=== PATIENT | female | born 1980 | race Caucasian/White ===

== ENCOUNTER 2018-08-09 12:11 | Emergency (ER) | payer BC ==
--- OUTSIDE RECORDS SUMMARY | 2018-08-09 13:57 | XMS REPORT ---
:1980 External Reference #:[id number] Author Organization [facility] Address [address] [place] [address] Phone [phone] Care Team Providers Name Role Phone Sami Conn MD Care Team Information Privacy Attorney Unavailable Sami Conn MD Primary Care Physician Unavailable Payers Type Date Identification Payment Provider Subscriber Numbers Health Maintenance Effective: Policy Number: Essential Plan Neli West (O) 06/04/2017 [id number] [employer] Expires: 08/03/2017 PayID: [id number] [address] [address] [place] [address] Medigap Part B Effective: Policy Number: [place] Neli Pa 08/04/2017 [id number] Robert PayID: [id number] [address] [address] [place] [address] Problems Date Description Provider Status Onset: 04/26/2011 Overweight Hanh Baker M.D. Active Onset: 04/26/2011 Allergic condition Hanh Baker M.D. Active Onset: 04/26/2011 Disorder of menstruation Hanh Baker M.D. Active Onset: 06/25/2011 Headache Sami Conn M.D. Active Onset: 01/08/2012 Dysphagia Sami Conn M.D. Active Onset: 01/08/2012 Excessive thirst Sami Conn M.D. Active Onset: 06/30/2012 Depressive disorder Sami Conn M.D. Active Onset: 07/10/2012 Acute upper respiratory infection Sami Conn M.D. Active Onset: 08/18/2012 Myalgia & Myositis Unspec Sami Conn M.D. Active Onset: 11/05/2013 Backache Sami Conn M.D. Active Onset: 11/05/2013 Arthralgia of the pelvic region and Sami Conn M.D. Active thigh Onset: 06/30/2017 Malaise and fatigue Sami Conn M.D. Active Onset: 06/06/2017 Polycystic ovaries Sami Conn M.D. Active Onset: 04/24/2016 Acne Sami Conn M.D. Active Family History Date Family Member(s) Problem(s) Comments General No FHx lung, colon Ca.No fHx DM. Father 58, healthy. Mother 55, HTN. Number of Children 2 boys, 1 daughter. Oldest son with bipolar disorder. No junk food in the house. Daughter, healthy. Youngest son - healthy. Number of Siblings 2 brothers, healthy. Maternal Grandfather 70's, [place]. Paternal Aunt Breast CA dx'd 40's. 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 Cigarette Use Never Smoked Cigarettes ETOH Use Denies alcohol use Daily Caffeine Rare Exercise Type/Frequency Current taking care of her . But otherwise no real exercise. Seat Belt/Car Seat Always uses a seat belt Contraceptive Methods will be getting an IUD.- paraguard. Allergies, Adverse Reactions, Alerts Date Description Reaction Status Severity Comments 01/20/2010 Percocet active 07/20/2010 Sulfa active 08/28/2012 Cipro active 03/29/2014 Anila active blinding QUILES'a-pzncvvcvz-chsp swings 03/29/2014 Glucophage inactive severe gi upset Medications Medication Date Status Form Strength Qnty SIG Indications Ordering Provider Augmentin 07/30 Active Tablets 875-125mg 20tabs 1 by Amaya mouth Laura, twice a VALVER day x 10 days No Active 07/30 Hx Unknown Medications /2017 - 07/30 No Active 03/02 Hx Unknown Medications /2017 - 03/02 Benzphetamine 03/02 Hx Tablets 50mg 30tabs Use 1 Sami Burr HCL Pill Ember Conn - Gina Echevarria 03/02 Cimetidine 03/02 Hx Tablets 400mg 30tabs Use 1 Sami Burr Pill A Breiman, - Day M.D. 07/29 Benzphetamine 03/02 Hx Tablets 50mg 30tabs Use 1 Sami Burr Pill A Breiman, - Day M.D. 07/29 Amoxicillin 10/27 Hx Capsules 500mg 20caps twice a Sami Burr day x 10 Breiman, - days M.D. 11/11 Macrobid 09/08 Hx Capsules 100mg 10caps use Sami Burr twice a Breiman, - day M.D. 11/11 Wellbutrin 07/17 Hx Tablets 75mg 60tabs 1 by Sami Burr mouth Fabien, - twice a M.D. Macrobid 06/25 Hx Capsules 100mg 10caps use Sami Burr twice a Breiman, - day M.D. 06/30 Metformin HCL 06/06 Hx Tablets 500mg 60tabs 1 by Sami Burr mouth Fabien, - twice a M.D. Imitrex 02/24 Hx Tablets 50mg 9tabs take 1 Sami Burr tablet Breiman, - by mouth M.D. 03/02 at onset of headache may repeat once in 2 hours Augmentin 02/10 Hx Tablets 500-125mg 20tabs 1 by Sami Burr mouth Lorraineimacarlos, - twice a M.D. Macrobid 09/10 Hx Capsules 100mg 10caps use Sami Burr twice a Breimacarlos, - day M.D. 10/23 Meloxicam 06/12 Hx Tablets 15mg 30tabs 1 by Sami Burr mouth Fabien, - every M.D. Diflucan 04/18 Hx Tablets 150mg 2tabs 1 po times 1 Ray, - day, december M.D. 06/12 repeat in 5-7d Metronidazole 04/18 Hx Tablets 500mg 21tabs 1 tab by mouth Ray, - three M.D. 06/12 times a day x 1 week Zithromax Z-Jermain 04/15 Hx Tablets 250mg 1Pack as Sami Burr directed Breiman, - M.D. 04/24 Minocycline HCL 03/28 Hx Capsules 75mg 60caps one L70.0 tablet Venu [facility] - by mouth 06/12 twice daily for treatmen t of acne Spironolactone 02/21 Hx Tablets 100mg 30tabs one L70.0 Nedra tablet Venu [facility] - by mouth 06/12 Benzoyl 01/17 Hx Gel 5-3% 23.300gm apply L70.0 Nedra Peroxide-Erythro small Venu [facility] mycin - amount 02/21 to affected area 2 x a day Augmentin 10/31 Hx Tablets 500-125mg 20tabs 1 by Sami Burr /2015 mouth Fabien, - twice a M.D. Phendimetrazine 10/29 Hx Tablets 35mg 180tabs 2 E66.3 Sami Burr Tar tablets Fabien, - by mouth M.D. 03/02 times a day Azithromycin 10/12 Hx Tablets 250mg 6tabs 2 po Sami Burr /2015 today Fabien, - and 1 po M.D. 10/29 x 4 days Nitrofurantoin 09/05 Hx Capsules 100mg 14caps 1 bid x1 Jenny Monohyd week Clifford, - M.D. 10/29 Augmentin 09/05 Hx Tablets 875-125mg 14tabs 1 tab by mouth Clifford, - twice a M.D. 10/29 day 7days Note 08/30 Hx neli Burr /2015 was Fabien, - seen M.D. 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 10/29 day Adderall 04/04 Hx Tablets 20 30tabs use Sami Burr /2014 daily Fabien, - in pm M.D. 07/13 dt Diflucan 11/29 Hx Tablets 150mg 2tabs 1 po Sami Burr /2014 times 1 Fabien, - day, december M.D. 08/28 in 5-7d Nitrofurantoin 11/29 Hx Capsules 100mg 20caps 1 bid Sami Aminah Monohyd Macro Jade Conn M.D. 08/28 No Active 10/19 Hx Unknown Medications /2014 - 11/29 Azithromycin 10/08 Hx Tablets 250mg 6tabs 2 po Sandro T. /2014 today Midura, - and 1 po M.D. 10/19 x 4 days Tramadol 08/24 Hx Tablets 37.5-325m 1 or 2 786.59 Amaya Hydrochloride/Ac g tablets Laura, etaminophen - every 6 VALVER 08/24 hours needed for pain relief up to a maximum of 8 tablets per day No Active 08/24 Hx Unknown Medications /2014 - 08/24 Phentermine HCL 08/24 Hx Capsules 15mg 30caps use 1 Sami Burr pill A Fabien, - day M.D. 10/19 Topamax 08/24 Hx Tablets 25mg 30tabs take one Sami Burr tablet Fabien, - by mouth M.D. 10/19 once A day Nitrofurantoin 04/12 Hx Capsules 100mg 20caps 1 po bid Sandro T. Monohydr /2013 Praneeth - M.D. 08/24 Alprazolam 03/29 Hx Tablets 0.25mg 30tabs 1 by 300.00 Amaya mouth Laura, - twice a VALVER 08/24 day needed anxiety Tramadol HCL 03/29 Hx Tablets 50mg 25tabs 1 q6h 786.59 Amaya /2014 prn pain Laura, - (known VALVER 08/24 hives w percocet ) Sertraline HCL 03/29 Hx Tablets 100mg 90tabs 1/2 po 311 Amaya /2014 qd Laura, - VALVER 08/24 Azithromycin 03/10 Hx Tablets 250mg 6tabs 2 po Sandro T. /2013 today Midura, - and 1 po M.D. 03/29 x 4 days Metformin HCL ER 03/03 Hx Tablets ER 500mg 90tabs 1 po qd 256.4 Graciela 24HR Jade Calderón 03/03 Anila 28 03/03 Hx Tablets 3-0.03mg 84tabs 1 po qd 256.4 Jade Calderón 03/29 Glucophage XR 03/03 Hx Tablets ER 500mg 90tabs 1 po qd 24HR Jade Calderón 03/29 Macrodantin 01/06 Hx Capsules 100mg 10caps 1 po bid x 5 days Alejo, - VALVER 02/09 Plegine 11/26 Hx 35 180units take 2 Sami Burr tid Jade Conn M.D. 08/24 Diflucan 11/13 Hx Tablets 150mg 2tabs 1 po times 1 Alejo, - day, 02/09 in 5-7d Betamethasone 10/12 Hx Cream 0.1% 30gm apply 782.1 Graciela bid Jade Calderón 10/19 Phentermine HCL 08/09 Hx Tablets 37.5mg 30tabs use po q.d Jade Calderón 11/26 Flagyl 07/27 Hx Tablets 500mg 14tabs 1 tab by Sami Burr /2012 mouth Fabien, - twice a M.D. 08/28 day x days Adderall 07/07 Hx Tablets 15mg 30tabs use Sami Burr /2012 daily Fabien, - in pm M.D. 04/04 Amoxicillin 06/30 Hx Capsules 500mg 16caps bid x 8 Sami Burr days Jade Conn M.D. 07/07 Macrodantin 06/14 Hx Capsules 100mg 10caps 1 po bid Sami Burr x 5 days Jade Conn M.D. 06/30 Adderall 06/10 Hx Tablets 10mg 30tabs 1 po Sami Burr qam Jade Conn M.D. 07/07 dt No Active 05/28 Hx Unknown Medications /2012 - 05/28 Plegine 05/28 Hx 35 180units use 2 Sami Burr tid Jade Conn M.D. 06/10 Metformin HCL 04/06 Hx Tablets 500mg 60tabs 1 po qd Amaya Laura, - VALVER 05/28 Naproxen 03/22 Hx Tablets 500mg 30tabs 1 po bid 728.71 Tiburcio Velasquez, /2012 Wale - 05/28 Diflucan 02/18 Hx Tablets 150mg 2tabs 1 po Nedra /2012 today Brown, [facility] - and december 08 repeat in 7 days x 1 prn Alprazolam 02/13 Hx Tablets 0.25mg 30tabs 1 po bid Rad A. /2012 prn Mona - anxiety Wale 05/28 Macrodantin 01/25 Hx Capsules 100mg 10caps 1 po bid x5 days Alejo, - VALVER 02/13 Amoxicillin/Clav 12/18 Hx Tablets 875-125mg 10tabs 1 po bid 461.9 Sami Burr john with Rhoda Conn - mary leslie M.D. 02/13 5d Fexofenadine HCL 12/01 Hx Tablets 180mg 30tabs 1 po qd 995.3 Graciela Jade Calderón-C 12/23 Hydrocortisone/A 12/01 Hx Solution 1-2% 10ml 1-2 gtts 995.3 Graciela cetic Acid OU tid Kaitlynn, - prn Afnp-C 12/11 Work Excuse 10/22 Hx excuse 382.4 from Laura, - work due VALVER 11/25 to infectio us illness until 10/23/12, 10/24/12 Amoxicillin/Pota 10/22 Hx Tablets 875-125mg 20tabs take one 382.4 Amaya tab po Laura, Clavulanate - bid x 10 VALVER Amoxicillin/Clav 08/28 Hx Tablets 875-125mg 20tabs 1 po bid 461.9 Grace john with Alejo Potassium - food x VALVER 09/16 Naproxen 08/18 Hx Tablets 375mg 30tabs take 1 Sami Burr tablet Fabien - twice a M.D. 08/28 day meals Note 08/[address] Sami Burr tempora Jade Conn in M.DPetar 10/21 parking lot due to pain dt Ciprofloxacin 08/06 Hx Tablets 250mg 6tabs take 1 Amaya HCL tablet Laura, - po bid x VALVER 08/18 3 Tamiflu 07/10 Hx Capsules 75mg 10caps 1 bid Sami Burr X 5 Days Jade Conn M.D. 08/05 Celexa 06/30 Hx Tablets 10mg 30tabs 1 po qd Sami Burr Jade Conn M.D. 08/05 Note Due To 04/22 Hx Please [facility] Issues excuse Alejo, - Crystal VALVER 05/27 classes on and \\ due to illness. Amoxicillin/Clav 04/20 Hx Tablets 875-125mg 20tabs 1 po bid 461.9 Grace anat with Alejo Potassium - food x VALVER 05/27 Diflucan 11/28 Hx Tablets 150mg 4tabs 1 po Hanh LPetar times 1 Samuel - ginaDecember.DPetar 12/17 repeat in 5-7d Plegine 11/19 Hx 35 180units use 2 Sami Burr tid Jade Conn M.D. 05/28 Augmentin 10/31 Hx Tablets 875-125mg 28tabs 1 po bid Hanh LPetar Jade Baker M.D. 11/19 take with yogurt/a lign Cephalexin 10/27 Hx Capsules 250mg 30caps 1 po tid Hanh LPetar x 10 d. Samuel, Jade with M.DPetar 11/19 yogurt or kefir. Bactroban 10/24 Hx Ointment 2% 30mg apply tid to Alejo, - affected VALVER 11/19 area 3-5d Flector 10/06 Hx Patches 1.3% 4units 1 patch Hanh L. /2011 q 12 Samuel - hours M.DPetar 11/19 Acetaminophen/Co 10/06 Hx Tablets 300-30mg 20tabs 1-2 po Hanh Elizabeth deine #3 at hs. Jade Baker M.D. 11/19 Cytomel 07/16 Hx Tablets 5mcg 60tabs 1 po bid Hanh Johnson Jade Baker M.D. 11/19 Nortriptyline 07/05 Hx Capsules 25 30caps take 1 Sami Burr po qhs Jade Conn M.DPetar 09/03 Vimovo 05/[address] 500-20mg samples 1 po bid 848.8 Grace Alejo - VALVER 06/25 Amrix 05/13 Hx Caps ER 15mg samples 1 po qhs 848.8 Grace 24HR Alejo - VALVER 06/25 Augmentin 03/30 Hx Tablets 875-125mg 28tabs 1 po bid Amaya von - Broderick, 04/26 M.D. take with yogurt Prednisone 03/30 Hx Tablets 20mg 5tabs 1 tabs po qd x lisa - 5 Broderick, 04/26 M.D. Penvk 03/27 Hx 500 20units use bid Petar x 10 Fabien - days M.D. 03/30 Vitamin D 12/04 Hx Capsules [id number] 18caps 1 po Sami Burr weekly x Jade Conn 8. M.DPetar 12/23 1 po monthly thereaft er. Physical Therapy 11/23 Hx Evaluate ayo knee 719.46 Hanh LPetar And Treat pain - Jade Baker exercise M.DPetar 03/27 evaluate left hip pain Multivitamins 11/23 Hx Tablets 100tabs 1 po qd 719.45 Hanh LPetar Jade Baker M.D. 03/27 Vitamin C 11/23 Hx Tablets 500mg 100tabs 2 po qd 719.45 Hanh LPetar Jade Baker M.D. 03/27 B Complex Maxi 11/23 Hx Capsules 90caps 1 po qd 719.45 Hanh Johnson Jade Baker M.D. 03/27 Depo-Provera 07/20 Hx Suspension 150mg/ml q 3 Grace months Alejo, - VALVER 11/23 Zithromax 07/20 Hx Tablets 250mg 6Tabs 2 po qd 786.2 today , Alejo, - then 1 VALVER 11/23 po qd times 4 Proair HFA 07/20 Hx Aerosol 108(90Bas 1Mdi 2 puffs 786.2 e) mcg/ac bid-qid Alejo, - prn VALVER 11/23 cough, sob Ondansetron HCL 03/23 Hx Tablets 8mg 30tabs 1 po tid Amaya as von - needed Broderick, 07/20 for hypereme sis gravidar um PT Wants Disolova ble Tabs Tylenol With 02/24 Hx Tablets 300-30mg 30tabs 1 po q 6 Amaya Codeine #3 hours von - prn Broderick, 07/20 headache Zofran 01/24 Hx Tablets 8mg 25tabs 1 po tid as von - needed Broderick, 03/23 for hypereme sis gravidar um Zantac Hx Tablets 150mg 30tabs 1 po qd Unknown /0000 - 07/20 Provera Hx Tablets 2.5mg 7tabs take Unknown /0000 last - week ok 05/13 month Provera 00 Hx Tablets 10mg 1 po qd Unknown /0000 then - stop 06/25 Flagyl Hx Tablets 500mg prn Unknown /0000 - 04/24 Fluconazole Hx Tablets 150mg 30tabs 1 po qd Amaya /0000 prn Laura, - VALVER 03/02 Medications Administered in Office Medication Date Status Form Strength Qnty SIG Indications Ordering Provider TB Intradermal Administered Injection Sami Pizarro 016 Wale Conn TB Intradermal Administered Injection Sami Pizarro 015 Wale Conn TB Intradermal Administered Injection Sami Pizarro 014 Wale Conn TB Intradermal Administered Injection Sami Pizarro 013 Wale Conn TB Intradermal Administered Injection Sami Pizarro 012 Wale Conn TB Intradermal Administered Injection Hanh Pizarro 011 Wale Baker Immunizations CPT Code Status Date Vaccine Lot # [id number] Given 04/27/2015 Influenza Vac, Quadrivalent, Slit Virus, Im [id number] 08149 Given 04/26/2014 DO Not Use Split Influenza Virus Vaccine [id number] 91071 Given 03/30/2014 Varicella (Chicken Pox) Immunization [id number] 33185 Given 01/05/2014 Meningococcal Conjugate Vaccine,Serogroups For [id number] Intramuscular Use 88827 Given 01/05/2014 Varicella (Chicken Pox) Immunization [id number] 00223 Given 05/12/2013 DO Not Use Split Influenza Virus Vaccine [id number] 52122 Given 05/04/2012 DO Not Use Split Influenza Virus Vaccine [id number] 37519 Given 07/19/2011 Hepatitis B Immunization, adult dosage, for [id number] intramuscular use 69096 Given 07/19/2011 MMR Virus Immunization [id number] 76917 Given 04/23/2011 DO Not Use Split Influenza Virus Vaccine [id number] 17614 Given 03/06/2011 Hepatitis B Immunization, adult dosage, for [id number] intramuscular use 89424 Given 01/22/2011 Hepatitis B Immunization, adult dosage, for [id number] intramuscular use 86783 Given 09/03/2010 Tdap Tetanus, W Pertussis [id number] 41223 Given 04/20/2010 DO Not Use Split Influenza Virus Vaccine [id number] 93961 Given 09/19/1997 Tetanus And Diptheria Adult Preservative Free >7Yrs 82359 Given 03/08/1988 (IPV) Inactive Poliovirus Vaccine 00428 Given 03/08/1988 DTP Immunization 33672 Given 05/04/1987 (IPV) Inactive Poliovirus Vaccine 05172 Given 02/02/1984 (IPV) Inactive Poliovirus Vaccine 23060 Given 02/02/1984 DTP Immunization 83654 Given 12/26/1983 MMR Virus Immunization 63417 Given 03/04/1983 DTP Immunization 28666 Given 01/02/1983 (IPV) Inactive Poliovirus Vaccine 46559 Given 01/02/1983 DTP Immunization 48424 Given 1982 (IPV) Inactive Poliovirus Vaccine 63784 Given 1982 DTP Immunization Vital Signs Date Vital Result Comment 07/30/2018 BP Systolic 112 mmHg BP Diastolic 82 mmHg Heart Rate 90 /min Body Temperature 97.7 F Height 64 inches 5'4" 03/02/2018 BP Systolic 114 mmHg BP Diastolic 72 mmHg Heart Rate 68 /min Body Temperature 98.1 F Respiratory Rate 16 /min Height 64 inches 5'4" Weight 210.12 lb BMI (Body Mass Index) 36.1 kg/m2 11/11/2017 BP Systolic 108 mmHg BP Diastolic 70 mmHg Heart Rate 76 /min Body Temperature 98.4 F Respiratory Rate 18 /min Weight 214.00 lb 06/30/2017 BP Systolic 112 mmHg BP Diastolic 72 mmHg Heart Rate 76 /min Body Temperature 98.1 F Respiratory Rate 16 /min Height 64 inches 5'4" Weight 203.38 lb BMI (Body Mass Index) 34.9 kg/m2 06/06/2017 BP Systolic 116 mmHg BP Diastolic 70 mmHg Heart Rate 68 /min Body Temperature 98.6 F Height 64 inches 5'4" Weight 206.00 lb BMI (Body Mass Index) 35.4 kg/m2 02/05/2017 BP Systolic 118 mmHg BP Diastolic 70 mmHg Heart Rate 64 /min Body Temperature 98.4 F Respiratory Rate 16 /min Height 64 inches 5'4" Weight 204.38 lb BMI (Body Mass Index) 35.1 kg/m2 10/23/2016 BP Systolic 124 mmHg BP Diastolic 68 mmHg Heart Rate 72 /min Body Temperature 99.3 F Respiratory Rate 16 /min Height 64 inches 5'4" Weight 192.00 lb BMI (Body Mass Index) 33.0 kg/m2 06/12/2016 BP Systolic 126 mmHg BP Diastolic 70 mmHg Heart Rate 72 /min Body Temperature 98.2 F Respiratory Rate 16 /min Height 64 inches 5'4" Weight 186.38 lb BMI (Body Mass Index) 32.0 kg/m2 04/24/2016 BP Systolic 102 mmHg BP Diastolic 62 mmHg Heart Rate 76 /min Body Temperature 97.2 F Height 64 inches 5'4" Weight 185.00 lb BMI (Body Mass Index) 31.8 kg/m2 03/28/2016 BP Systolic 110 mmHg BP Diastolic 60 mmHg Heart Rate 76 /min Body Temperature 97.9 F Respiratory Rate 16 /min Height 64 inches 5'4" Weight 179.00 lb BMI (Body Mass Index) 30.7 kg/m2 02/22/2016 BP Systolic 122 mmHg BP Diastolic 82 mmHg Heart Rate 68 /min Body Temperature 98.9 F Height 64 inches 5'4" Weight 186.00 lb BMI (Body Mass Index) 31.9 kg/m2 01/18/2016 BP Systolic 124 mmHg BP Diastolic 84 mmHg Heart Rate 72 /min Body Temperature 98.8 F Respiratory Rate 16 /min Height 64 inches 5'4" Weight 188.00 lb BMI (Body Mass Index) 32.3 kg/m2 10/30/2015 BP Systolic 102 mmHg BP Diastolic 80 mmHg Heart Rate 74 /min Body Temperature 98.4 F Height 64 inches 5'4" Weight 186.00 lb BMI (Body Mass Index) 31.9 kg/m2 08/28/2015 BP Systolic 122 mmHg BP Diastolic 74 mmHg Heart Rate 70 /min Body Temperature 97.3 F Respiratory Rate 16 /min Height 64 inches 5'4" Weight 183.50 lb BMI (Body Mass Index) 31.5 kg/m2 11/08/2014 BP Systolic 110 mmHg BP Diastolic 60 mmHg Heart Rate 76 /min Body Temperature 98.8 F Respiratory Rate 16 /min Height 64 inches 5'4" 10/19/2014 BP Systolic 124 mmHg BP Diastolic 80 mmHg Heart Rate 68 /min Body Temperature 98.1 F Respiratory Rate 18 /min Height 64 inches 5'4" Weight 204.00 lb BMI (Body Mass Index) 35.0 kg/m2 Right Visual Acuity Distance 20/20 Left Visual Acuity Distance 20/20 09/09/2014 BP Systolic 123 mmHg BP Diastolic 82 mmHg Heart Rate 85 /min Body Temperature 99.1 F Respiratory Rate 16 /min Height 64 inches 5'4" 08/24/2014 BP Systolic 122 mmHg BP Diastolic 72 mmHg Heart Rate 66 /min Body Temperature 98.4 F Respiratory Rate 18 /min Height 64 inches 5'4" Weight 204.00 lb BMI (Body Mass Index) 35.0 kg/m2 03/29/2014 BP Systolic 118 mmHg BP Diastolic 80 mmHg Heart Rate 78 /min Body Temperature 98.3 F Respiratory Rate 16 /min Height 64 inches 5'4" 03/03/2014 BP Systolic 122 mmHg BP Diastolic 78 mmHg Heart Rate 72 /min Body Temperature 98.1 F Height 64 inches 5'4" Measured Weight 197.50 lb BMI (Body Mass Index) 33.9 kg/m2 02/09/2014 BP Systolic 120 mmHg BP Diastolic 68 mmHg Heart Rate 64 /min Body Temperature 98.0 F Respiratory Rate 18 /min Height 64 inches 5'4" Measured Weight 197.00 lb BMI (Body Mass Index) 33.8 kg/m2 11/26/2013 BP Systolic 120 mmHg BP Diastolic 74 mmHg Heart Rate 62 /min Body Temperature 98.0 F Respiratory Rate 18 /min Height 64 inches 5'4" Measured Weight 192.00 lb BMI (Body Mass Index) 33.0 kg/m2 11/11/2013 BP Systolic 122 mmHg BP Diastolic 78 mmHg Heart Rate 78 /min Body Temperature 98.7 F Height 64 inches 5'4" Measured Weight 190.00 lb BMI (Body Mass Index) 32.6 kg/m2 11/05/2013 BP Systolic 124 mmHg BP Diastolic 72 mmHg Heart Rate 62 /min Body Temperature 97.9 F Respiratory Rate 18 /min Height 64 inches 5'4" Measured Weight 191.00 lb BMI (Body Mass Index) 32.8 kg/m2 10/12/2013 BP Systolic 100 mmHg BP Diastolic 60 mmHg Heart Rate 80 /min Body Temperature 98.7 F Respiratory Rate 16 /min Height 64 inches 5'4" Measured 08/09/2013 BP Systolic 128 mmHg BP Diastolic 80 mmHg Heart Rate 72 /min Body Temperature 98.4 F Respiratory Rate 18 /min Height 64 inches 5'4" Measured Weight 190.00 lb BMI (Body Mass Index) 32.6 kg/m2 07/07/2013 BP Systolic 124 mmHg BP Diastolic 80 mmHg Heart Rate 70 /min Body Temperature 99.0 F Respiratory Rate 18 /min Height 64 inches 5'4" Measured Weight 185.00 lb BMI (Body Mass Index) 31.8 kg/m2 06/30/2013 BP Systolic 122 mmHg BP Diastolic 70 mmHg Heart Rate 72 /min Body Temperature 98.9 F Respiratory Rate 18 /min Height 64 inches 5'4" Measured 06/10/2013 BP Systolic 118 mmHg BP Diastolic 60 mmHg Heart Rate 66 /min Body Temperature 98.1 F Respiratory Rate 16 /min Height 64 inches 5'4" Measured Weight 185.38 lb BMI (Body Mass Index) 31.8 kg/m2 05/28/2013 BP Systolic 122 mmHg BP Diastolic 70 mmHg Heart Rate 72 /min Body Temperature 98.2 F Respiratory Rate 18 /min Height 64 inches 5'4" Measured Weight 185.00 lb BMI (Body Mass Index) 31.8 kg/m2 04/06/2013 BP Systolic 126 mmHg BP Diastolic 80 mmHg Heart Rate 78 /min Body Temperature 99.1 F Respiratory Rate 16 /min Height 64 inches 5'4" Measured Weight 183.38 lb BMI (Body Mass Index) 31.5 kg/m2 Right Visual Acuity Distance 20/20 Left Visual Acuity Distance 20/20 03/22/2013 BP Systolic 110 mmHg BP Diastolic 76 mmHg Heart Rate 80 /min Body Temperature 98.6 F Respiratory Rate 16 /min Height 64.25 inches 5'4.25" 12/24/2012 BP Systolic 112 mmHg BP Diastolic 84 mmHg Heart Rate 78 /min Body Temperature 98.0 F Height 64.25 inches 5'4.25" Weight 171.00 lb BMI (Body Mass Index) 29.1 kg/m2 12/01/2012 BP Systolic 110 mmHg BP Diastolic 78 mmHg Heart Rate 80 /min Body Temperature 99.2 F Height 64.25 inches 5'4.25" 11/25/2012 BP Systolic 110 mmHg BP Diastolic 80 mmHg Heart Rate 78 /min Body Temperature 97.8 F Height 64.25 inches 5'4.25" Weight 175.00 lb BMI (Body Mass Index) 29.8 kg/m2 10/23/2012 BP Systolic 110 mmHg BP Diastolic 60 mmHg Heart Rate 84 /min Body Temperature 98.4 F Respiratory Rate 16 /min Height 64.25 inches 5'4.25" Weight 173.00 lb BMI (Body Mass Index) 29.5 kg/m2 10/22/2012 BP Systolic 118 mmHg BP Diastolic 82 mmHg Heart Rate 72 /min Body Temperature 98.6 F Height 64.25 inches 5'4.25" Weight 173.00 lb BMI (Body Mass Index) 29.5 kg/m2 09/16/2012 BP Systolic 110 mmHg BP Diastolic 78 mmHg Heart Rate 78 /min Body Temperature 97.8 F Height 64.25 inches 5'4.25" Weight 176.00 lb BMI (Body Mass Index) 30.0 kg/m2 08/28/2012 BP Systolic 108 mmHg BP Diastolic 78 mmHg Heart Rate 84 /min Body Temperature 98.8 F Height 64.25 inches 5'4.25" 08/18/2012 BP Systolic 120 mmHg BP Diastolic 84 mmHg Heart Rate 88 /min Body Temperature 97.2 F Height 64.25 inches 5'4.25" Weight 177.00 lb BMI (Body Mass Index) 30.1 kg/m2 08/05/2012 BP Systolic 118 mmHg BP Diastolic 76 mmHg Heart Rate 68 /min Body Temperature 98.3 F Height 64.25 inches 5'4.25" Weight 182.00 lb BMI (Body Mass Index) 31.0 kg/m2 07/10/2012 BP Systolic 122 mmHg BP Diastolic 88 mmHg Heart Rate 96 /min Body Temperature 100.7 F Height 64.25 inches 5'4.25" Weight 182.00 lb BMI (Body Mass Index) 31.0 kg/m2 06/30/2012 BP Systolic 120 mmHg BP Diastolic 80 mmHg Heart Rate 76 /min Body Temperature 98.1 F Height 64.25 inches 5'4.25" Weight 185.00 lb BMI (Body Mass Index) 31.5 kg/m2 05/27/2012 BP Systolic 122 mmHg BP Diastolic 84 mmHg Heart Rate 78 /min Body Temperature 97.0 F Height 64.25 inches 5'4.25" Weight 187.00 lb BMI (Body Mass Index) 31.8 kg/m2 04/22/2012 BP Systolic 110 mmHg BP Diastolic 84 mmHg Heart Rate 78 /min Body Temperature 97.9 F Height 64.25 inches 5'4.25" Weight 194.00 lb BMI (Body Mass Index) 33.0 kg/m2 04/20/2012 BP Systolic 100 mmHg BP Diastolic 70 mmHg Heart Rate 72 /min Body Temperature 98.7 F Height 64.25 inches 5'4.25" Weight 196.00 lb BMI (Body Mass Index) 33.4 kg/m2 03/25/2012 BP Systolic 110 mmHg BP Diastolic 80 mmHg Heart Rate 66 /min Body Temperature 97.6 F Height 64.25 inches 5'4.25" Weight 196.00 lb BMI (Body Mass Index) 33.4 kg/m2 02/21/2012 BP Systolic 122 mmHg BP Diastolic 84 mmHg Heart Rate 80 /min Body Temperature 97.9 F Height 64.25 inches 5'4.25" Weight 201.00 lb BMI (Body Mass Index) 34.2 kg/m2 01/08/2012 BP Systolic 122 mmHg BP Diastolic 88 mmHg Heart Rate 68 /min Body Temperature 97.4 F Height 64.25 inches 5'4.25" Weight 211.00 lb BMI (Body Mass Index) 35.9 kg/m2 12/18/2011 BP Systolic 114 mmHg BP Diastolic 80 mmHg Heart Rate 72 /min Height 64.25 inches 5'4.25" Weight 214.00 lb BMI (Body Mass Index) 36.4 kg/m2 11/20/2011 BP Systolic 130 mmHg BP Diastolic 90 mmHg Heart Rate 68 /min Body Temperature 97.7 F Height 64.25 inches 5'4.25" Weight 225.00 lb BMI (Body Mass Index) 38.3 kg/m2 09/16/2011 BP Systolic 110 mmHg BP Diastolic 64 mmHg Heart Rate 72 /min Height 64.25 inches 5'4.25" 09/03/2011 BP Systolic 120 mmHg BP Diastolic 80 mmHg Heart Rate 80 /min Body Temperature 98.2 F Height 64.25 inches 5'4.25" 06/25/2011 BP Systolic 122 mmHg BP Diastolic 74 mmHg Heart Rate 66 /min Body Temperature 97.4 F Height 64.25 inches 5'4.25" Weight 226.00 lb BMI (Body Mass Index) 38.5 kg/m2 05/13/2011 BP Systolic 120 mmHg BP Diastolic 70 mmHg Heart Rate 72 /min Body Temperature 98.6 F Height 64.25 inches 5'4.25" 04/26/2011 BP Systolic 120 mmHg BP Diastolic 70 mmHg Heart Rate 80 /min Body Temperature 98.0 F Respiratory Rate 16 /min Height 64.25 inches 5'4.25" 04/01/2011 BP Systolic 120 mmHg BP Diastolic 82 mmHg Heart Rate 64 /min Height 64.25 inches 5'4.25" Weight 222.00 lb BMI (Body Mass Index) 37.8 kg/m2 03/30/2011 BP Systolic 118 mmHg BP Diastolic 60 mmHg Heart Rate 92 /min Body Temperature 98.2 F Respiratory Rate 20 /min Height 64.25 inches 5'4.25" Weight 224.00 lb BMI (Body Mass Index) 38.1 kg/m2 03/27/2011 BP Systolic 120 mmHg BP Diastolic 64 mmHg Heart Rate 110 /min Body Temperature 100.1 F Respiratory Rate 20 /min Height 64.25 inches 5'4.25" Weight 226.00 lb BMI (Body Mass Index) 38.5 kg/m2 11/23/2010 BP Systolic 116 mmHg BP Diastolic 78 mmHg Heart Rate 66 /min Body Temperature 97.2 F Respiratory Rate 20 /min Height 64.25 inches 5'4.25" Weight 224.00 lb BMI (Body Mass Index) 38.1 kg/m2 07/20/2010 BP Systolic 120 mmHg BP Diastolic 80 mmHg Heart Rate 72 /min Body Temperature 99.2 F Respiratory Rate 20 /min Height 64.25 inches 5'4.25" Weight 214.00 lb BMI (Body Mass Index) 36.4 kg/m2 01/20/2010 BP Systolic 118 mmHg BP Diastolic 82 mmHg Body Temperature 98.9 F Height 64.25 inches 5'4.25" Weight 220.00 lb BMI (Body Mass Index) 37.5 kg/m2 Results Test Date Test Result H/L Range Note Xray 11/13/2017 Hand Min 3 Views Bilateral <pending> Computer Aided Screening Mammography <pending> Laboratory test 11/11/2017 Sedimentation Rate <pending> finding Rheumatoid Arthritis 11/11/2017 Ra Latex Turbid. <10.0 IU/mL 0.0-13.9 1 Factor ([facility]) Laboratory test 11/11/2017 Hla B 27 Disease Negative 1, 2 finding Association C-Reactive Protein, Quant 2.7 mg/L 0.0-4.9 1 Antinuclear Antibodies, Ifa Negative 1, 3 CCP Abs Igg/Iga 11/11/2017 CCP Antibodies IgG/IgA 4 units 0-19 1, 4 Laboratory test finding 11/11/2017 Uric Acid 5.2 mg/dL 2.5-9.2 CK 73 U/L 26-140 Vitamin B-12 400 pg/mL 230-1050 Lyme, Western Blot, Serum 10/24/2017 IgG P93 Ab. Absent 5 IgG P66 Ab. Present 5 IgG P58 Ab. Absent 5 IgG P45 Ab. Absent 5 IgG P41 Ab. Absent 5 IgG P39 Ab. Absent 5 IgG P30 Ab. Absent 5 IgG P28 Ab. Absent 5 IgG P23 Ab. Absent 5 IgG P18 Ab. Absent 5 Lyme IgG WB Interp. Negative 5, 6 IgM P41 Ab. Absent 5 IgM P39 Ab. Absent 5 IgM P23 Ab. Present 5 Lyme IgM WB Interp. Negative 5, 7 Laboratory test finding 06/30/2017 Dhea, Serum 324 ng/dL 31-701 8, 9 Estrogens, Total 305 pg/mL 8, 10 Progesterone 0.1 ng/mL 8, 11 Reverse T3, Serum 17.3 ng/dL 9.2-24.1 8 Cortisol - Am 9.7 g/dL 6.2-19.4 8 Anti-Thyroid Antibodies 06/30/2017 Thyroid Peroxidase (Tpo) Ab 13 IU/mL 0 -34 8 Screen Thyroglobulin Antibody <1.0 IU/mL 0.0-0.9 8, 12 Laboratory test finding 06/30/2017 Free T4 1.05 ng/dL 0.75-1.54 TSH 0.70 mIU/L 0.50-6.00 Free T3 2.18 pg/mL 2.00-4.90 Laboratory test finding 12/26/2015 Luteinizing Hormone(LH), 3.9 mIU/mL 13, 14 S FSH, Serum 12/26/2015 FSH 4.6 mIU/mL 13, 15 Laboratory test finding 12/26/2015 Estrogens, Total 59 pg/mL 13, 16 Testosterone, Free And 12/26/2015 Testosterone, Serum 24 ng/dL 8-48 13 Total Comment: TNP 13 Free Testosterone(Direct) 2.1 pg/mL 0.0-4.2 13 Laboratory test 11/24/2015 Clotest SEE RESULT BELOW 17 finding Laboratory test 11/24/2015 Surgical Pathology SEE RESULT BELOW 18, 19 finding CBC Electronic ([facility]) 10/30/2015 WBC 5.6 3.6-9.6 RBC 4.48 3.90-5.70 Hemoglobin (Fma/CMC/CTX) 13.8 g/dL 12.1 - 17.2 Hematocrit (a/CMC/CTX) 41.3 % 36.1 - 50.3 Platelets 294 10^3/ul 150-400 Lymph% 39.0 % 17.0-48.0 Mixed% 4.3 Neutrophils % 56.7 Mean Corpuscular Vol 92 82.2-97.4 Mean Corpuscular Hemoglobin 30.9 27.6-33.3 Mean Corpuscular Hemo Concen 33.5 32.0-36.0 RDW 13.4 11.6-13.7 Mean Platelet Volume 7.6 5.5-11.0 Comprehensive Metabolic Prof 10/30/2015 Sodium 140 mEq/L 134-149 Potassium 3.8 mEq/L 3.6-5.5 Chloride 101 mEq/L 94-112 Carbon Dioxide 25 mEq/L 21-32 Glucose 75 mg/dL 70-105 BUN 9 mg/dL 6-26 Creatinine 0.6 mg/dL 0.6-1.4 BUN/Creat Ratio 15.0 CALC 8.0-36.0 Calcium 8.7 mg/dL 8.6-10.2 Total Protein 7.3 g/dL 6.4-8.3 Albumin 4.4 g/dL 3.8-5.5 Globulin 2.9 g/dL 2.0-4.8 A/G Ratio 1.5 CALC 0.6-2.3 Alk. Phosphatase 70 U/L 30-110 Alt (SGPT) 21 U/L 7-35 Ast (Sgot) 35 U/L High 5-34 20 Total Bilirubin 0.4 mg/dL 0.2-1.3 GFR Non- >60 ml/min/1.73m^ >=60 GFR >60 ml/min/1.73m^ >=60 Laboratory test finding 10/30/2015 TSH 0.84 mIU/L 0.50-6.00 PT And PTT 10/30/2015 Inr 1.0 0.8-1.2 21, 22 Prothrombin Time 10.5 sec 9.1-12.0 21 aPTT 33 sec 24-33 21, 23 Influenza A&B-[facility] 10/27/2015 Influenza A NEGATIVE Influenza B NEGATIVE Urine Culture Routine 09/05/2015 Urine Culture, Routine Final report 24 , 25 Result 1 Klebsiella pneum <SEE NOTE> 24, 26 Antimicrobial Susceptibility See Comment: 24, 27 Ua - Micro (Fma) 09/05/2015 Appearance ORANGE Color CLOUDY Glucose, Urine (Fma/CMC/CTX) NEG Bilirubin NEG Ketones TRACE SP Grav 1.025 Blood TRACE-LYSED PH 6.5 Protein NEG Urobil 1.0 Nitrite POS Leukocytes (Fma/CMC/Centrex) SMALL Hyaline - /Lpf Granular - /Lpf WBC (Fma,Centrex) 15-20 RBC 0-2 Mucus - /Lpf Epith occass /Lpf Bacteria 3+ /Hpf Amorphous - /Lpf Crystals, Fluid (Fma/CMC/CTX) - Z#Comments - Ua - Micro (a) 08/09/2015 Appearance CLEAR Color ORANGE Glucose, Urine (Fma/CMC/CTX) NEG Bilirubin ICTO:NEG Ketones NEG SP Grav 1.020 Blood NEG PH 7.0 Protein SSA:NEG Urobil 2.0 Nitrite NEG Leukocytes (Fma/CMC/Centrex) TRACE Hyaline - /Lpf Granular - /Lpf WBC (Fma,Centrex) 18-20 RBC 2-3 Mucus - /Lpf Epith MODERATE /Lpf Bacteria TRACE-1+ /Hpf Amorphous - /Lpf Crystals, Fluid (Fma/CMC/CTX) - Z#Comments - Laboratory test finding 08/09/2015 Urine Culture (a/CMC) NEGATIVE Laboratory test finding 12/08/2014 Human Papilloma Virus Rna Negative Negative 28 Cytology RUN DATE: 12/09/ <SEE NOTE> 29 Comprehensive Metabolic Prof 08/24/2014 Sodium 144 mEq/L 134-149 Potassium 4.1 mEq/L 3.6-5.5 Chloride 98 mEq/L 94-112 Carbon Dioxide 26 mEq/L 21-32 Glucose 94 mg/dL 70-105 BUN 12 mg/dL 6-26 Creatinine 0.6 mg/dL 0.6-1.4 BUN/Creat Ratio 20.0 CALC 8.0-36.0 Calcium 9.1 mg/dL 8.6-10.2 Total Protein 7.7 g/dL 6.4-8.3 Albumin 4.5 g/dL 3.8-5.5 Globulin 3.2 g/dL 2.0-4.8 A/G Ratio 1.4 CALC 0.6-2.3 Alk. Phosphatase 71 U/L 30-110 Alt (SGPT) 9 U/L 7-35 Ast (Sgot) 15 U/L 5-34 Total Bilirubin 0.6 mg/dL 0.2-1.3 Lipid Profile 08/24/2014 Cholesterol 169 mg/dL 120-200 Triglycerides 93 mg/dL 30-200 HDL Cholesterol 43 mg/dL 30-85 LDL (Calculated) 107 CALC 0-129 VLDL Cholesterol 19 mg/dL 0-50 HDL Risk Factor 3.9 CALC 0.0-4.4 Complete Blood Count 08/24/2014 WBC 5.8 x10^3/UL 3.6-9.6 RBC 4.70 x10^6/UL 3.90-5.70 HGB 14.3 g/dL 12.1-17.2 HCT 42 % 36-50 MCV 89.0 fL 82.2-97.4 MCH 30.4 pg 27.6-33.3 MCHC 34.2 g/dL 33.0-35.5 RDW 11.9 % 11.6-13.7 PLT 254 x10^3/UL 150-400 MPV 8.8 fL 7.4-10.4 Gran # 3.8 x10^3/UL 1.5-7.2 Lymph# 1.9 x10^3/UL 0.7-4.9 [place]# 0.1 x10^3/UL 0.1-0.9 Gran % 62.7 % 42.2-75.2 Lymph % 33.9 % 20.5-51.1 [place]% 3.4 % 1.7-9.3 Laboratory test finding 08/24/2014 TSH 0.93 mIU/L 0.50-6.00 30 Vitamin D25 14 Low 30-100 31 Laboratory test finding 03/09/2014 Quickstrep negative Negative Ua - Non Micro ([facility]) 03/03/2014 Appearance CLEAR Color YELLOW Glucose NEGATIVE Bilirubin NEGATIVE Ketones NEGATIVE SP Grav 1.015 Blood NEGATIVE PH 7.0 Protein NEGATIVE Urobil 0.2 Nitrite NEGATIVE Leukocytes (a/CMC/Centrex) NEGATIVE Laboratory test finding 06/30/2013 Monospot (a/Centrex) neg Laboratory test finding 06/10/2013 Quickstrep neg Negative Throat - Beta Strep Fma NEG@48HRS Ua - Micro ([facility]) 01/25/2013 Appearance yellow Color clear Glucose neg Bilirubin neg Ketones neg SP Grav 1.025 Blood trace-intact PH 5.5 Protein neg Urobil 0.2 Nitrite neg Leukocytes (Fma/CMC/Centrex) small Hyaline - /Lpf Granular - /Lpf WBC (a,Centrex) >100 RBC 6-8 Mucus - /Lpf Epith rare /Lpf Bacteria tr-1+ /Hpf Amorphous - /Lpf Crystals, Fluid (Fma/CMC/CTX) - Z#Comments - CBC Electronic ([facility]) 10/21/2012 WBC 4.2 3.6-9.6 RBC 5.01 3.90-5.70 Hemoglobin (Fma/CMC/CTX) 14.8 g/dL 12.1 - 17.2 Hematocrit (Fma/CMC/CTX) 44.7 % 36.1 - 50.3 Platelets 245 10^3/ul 150-400 Lymph% 35.5 20.5-51.1 Mixed% 6.5 Neutrophils % 58.0 Mean Corpuscular Vol 89 82.2-97.4 Mean Corpuscular Hemoglobin 29.6 27.6-33.3 Mean Corpuscular Hemo Concen 33.2 32.0-36.0 RDW 13.8 High 11.6-13.7 Mean Platelet Volume 8.1 6.5-11.0 Comprehensive Metabolic Prof 10/21/2012 Albumin 5.0 g/dL 3.8-5.5 Alk. Phos. 80 U/L 30-110 Alt (SGPT) 5 U/L Low 7-35 32 Ast (Sgot) 15 U/L 5-34 BUN 7 mg/dL 6-26 Calcium 9.4 mg/dL 8.6-10.2 Chloride 99 mEq/L 94-112 Creatinine 0.7 mg/dL 0.6-1.4 Carbon Dioxide 26 mEq/L 21-32 Glucose 98 mg/dL 70-105 Sodium 138 mEq/L 134-149 Total Bilirubin 0.5 mg/dL 0.2-1.3 Total Protein 7.9 g/dL 6.3-8.1 Potassium 4.4 mEq/L 3.6-5.5 Globulin 2.8 g/dL 2.0-4.8 A/G Ratio 1.8 Calc 0.6-2.3 BUN/Creat Ratio 10.2 Calc 8.0-36.0 Laboratory test finding 10/21/2012 B12 502 pg/mL 230-1050 Lipid Profile 10/21/2012 Cholesterol 155 mg/dL 120-200 HDL 42 mg/dL 30-85 Triglycerides 74 mg/dL 30-200 HDL Risk Factor 3.7 CALC 0.0-4.4 LDL (Calculated) 98 CALC 0-129 VLDL (Calculated) 15 mg/dL 0-50 Laboratory test finding 10/21/2012 TSH 1.08 mIU/L 0.50-6.00 Laboratory test finding 10/21/2012 Estradiol 100.0 pg/mL 33, 34 FSH 5.4 mIU/ml 33, 35 LH 9.0 mIU/ml 33, 36 Cortisol (Am) 9.4 g/dL 4.3-22.4 33 Dhea Sulfate Panel 10/21/2012 Dhea-Sulfate 283.8 g/dL 98.8-340.0 33 Laboratory test 10/21/2012 17-Hydroxypregnenolon 205 ng/dL 33, 37 finding e Laboratory test 08/19/2012 Creatine Kinase 74 U/L 26-140 finding Laboratory test 08/19/2012 C-Reactive Protein 0.8 mg/L 0.0-5.0 38 finding Aldolase, Serum 7.3 U/L 1.2-7.6 38 Laboratory test finding 08/06/2012 Urine Culture Escherichia coli 39 Laboratory test finding 07/10/2012 Quickstrep NEGATIVE Negative Influenza A&B 07/10/2012 Influenza A POSITIVE Influenza B NEGATIVE Lipid Profile 06/20/2012 Cholesterol 139 mg/dL 120-200 HDL 28 mg/dL Low 30-85 40 Triglycerides 83 mg/dL 30-200 HDL Risk Factor 4.9 CALC High 0.0-4.4 LDL (Calculated) 94 CALC 0-129 VLDL (Calculated) 17 mg/dL 0-50 CBC Electronic (a) 06/20/2012 WBC 5.9 3.6-9.6 RBC 4.70 3.90-5.70 Hemoglobin (Fma/CMC/CTX) 13.5 g/dL 12.1 - 17.2 Hematocrit (Fma/CMC/CTX) 41.3 % 36.1 - 50.3 Platelets 243 10^3/ul 150-400 Lymph% 39.3 20.5-51.1 Mixed% 3.7 Neutrophils % 57.0 Mean Corpuscular Vol 88 82.2-97.4 Mean Corpuscular Hemoglobin 28.7 27.6-33.3 Mean Corpuscular Hemo Concen 32.7 32.0-36.0 RDW 12.7 11.6-13.7 Mean Platelet Volume 9.0 6.5-11.0 Comprehensive Metabolic Prof 06/20/2012 Albumin 5.0 g/dL 3.8-5.5 Alk. Phos. 78 U/L 30-110 Alt (SGPT) 12 U/L 7-35 Ast (Sgot) 24 U/L 5-34 BUN 10 mg/dL 6-26 Calcium 9.5 mg/dL 8.6-10.2 Chloride 103 mEq/L 94-112 Creatinine 0.7 mg/dL 0.6-1.4 Carbon Dioxide 24 mEq/L 21-32 Glucose 97 mg/dL 70-105 Sodium 135 mEq/L 134-149 Total Bilirubin 0.5 mg/dL 0.2-1.3 Total Protein 7.5 g/dL 6.3-8.1 Potassium 4.4 mEq/L 3.6-5.5 Globulin 2.5 g/dL 2.0-4.8 A/G Ratio 2.0 Calc 0.6-2.2 BUN/Creat Ratio 13.7 Calc 8.0-36.0 Laboratory test finding 06/20/2012 TSH 1.15 mIU/L 0.50-6.00 Free T4 1.04 ng/dL 0.75-1.54 Ua - Micro (Fma) 02/14/2012 Appearance CLEAR Color YELLOW Glucose NEG Bilirubin NEG Ketones NEG SP Grav 1.015 Blood TRACE-INTACT PH 6.0 Protein NEG Urobil 0.2 Nitrite NEG Leukocytes (Fma/CMC/Centrex) SMALL WBC (Fma,Centrex) 3-5 RBC 0-2 Epith FEW /Lpf Bacteria TRACE /Hpf Laboratory test 01/09/2012 Glucose, Serum 82 mg/dL 70-105 finding (Fma/CMC/CTX) Wound Culture 10/28/2011 .Gram Stain Additional RARE WBC, MOD. G 41 <SEE NOTE> Wound Culture Enterococcus estephania <SEE NOTE> 42 Laboratory test finding 10/08/2011 Urine Culture No growth. Ua - Micro (a) 10/08/2011 Appearance clear Color yellow Glucose, Urine (Fma/CMC/CTX) neg Bilirubin neg Ketones neg SP Grav 1.015 Blood small menses currently PH 6.0 Protein neg Urobil 0.2 Nitrite neg Leukocytes (Fma/CMC/Centrex) neg Hyaline - /Lpf Granular - /Lpf WBC (Fma,Centrex) 1-2 RBC 2-3 Mucus (Fma/CBC/Centrex) - /Lpf Epith occass /Lpf Bacteria trace /Hpf Amorphous (Fma/CMC/Centrex) - /Lpf Crystals, Fluid (Fma/CMC/CTX) - Z#Comments - CBC Auto Diff 09/27/2011 White Blood Count 8.0 CUMM 4.8-10.8 Red Cell Count 4.49 CUMM 4.2-5.4 Hemoglobin 12.8 g/dL 12.0-16.0 Hematocrit 38 % 35-47 Mean Corpuscular Volume 85 um3 79-97 Mean Corpuscular Hemoglob 29 pg 27-31 Mean Corpuscular HGB Cone 34 g/dL 32-36 Redcell Distribution WDTH 14 % 10.5-15 Platelet Count 250 CUMM 150-450 Mean Platelet Volume 10.8 um3 High 7.4-10.4 Gran % 62.9 % 38-83 Lymph % 30.5 % 25-47 Mononuclear % 5.6 % 1-9 Eosinophil % 0.7 % 0-6 Basophil % 0.3 % 0-2 Abs Lymphs 2.4 1.0-4.8 Abs Mononuclear 0.5 0-0.8 Absolute Neutrophil Count 5.0 1.5-7.7 Abs Eosinophils 0.1 0-0.6 Abs Basophils 0 0-0.2 Laboratory test finding 09/27/2011 (HCG) Serum NEGATIVE Negative 43 Type & Screen 09/27/2011 Patient Blood Type O POSITIVE Antibody Screen NEGATIVE Laboratory test finding 09/03/2011 Reverse T3, Serum 24.9 ng/dL 13.5- 34.2 Basic Metabolic Panel 08/26/2011 Sodium 138 mmol/L 135-145 Potassium 4.2 mmol/L 3.5-5.0 Chloride 106 mmol/L 101-111 Co2 (Carbon Dioxide) 26.0 mmol/L 22-32 Anion Gap 6.0 mmol/L 2-11 44 Glucose 95 mg/dL 70-100 BUN 7 mg/dL 6-24 Creatinine 0.6 mg/dL 0.50-1.40 One Over Creatinine 1.66 BUN/Creatinine Ratio 11.7 8-20 Calcium 9.2 mg/dL 8.1-9.9 eGFR Non- 119.0 > 60 eGFR 153.1 > 60 45 Laboratory test finding 08/26/2011 Thyroxine Free 0.75 ng/dL 0.61-1.24 T3 Total 1.86 NG/ML High 0.5-1.7 T3 Free 3.37 pg/mL 2.39-6.79 TSH 1.20 MIU/ML 0.34-5.60 FSH 4.90 MIU/ML 46 Lutenizing Hormone 6.87 MIU/ML 47 Prolactin 5.86 NG/ML 1.0-25.0 Cortisol 8.9 g/dL 48 Testosterone Total 41.0 ng/dL 10-75 Estradiol 48 pg/mL 49 Progesterone 4.4 NG/ML 50 Thyroperoxidase Antibody 0.1 IU/mL Less Than 9.0 Progesterone,17 Hydroxy 101 ng/dL () 51 Androstenedione 132 ng/dL 30-200 52 Dhea Sulfate 264 g/dL 44-332 53 Somatomedin C/Ins Growth Fact 112 ng/mL 117 - 321 54 Anti Thyroid Abs 06/13/2011 Thyroid Peroxidase (Tpo) Ab 8 IU/mL 0-34 55 Antithyroglobulin Ab <20 IU/mL 0-40 55, 56 Laboratory test finding 06/13/2011 T-4 Total 10.5 g/dL 4.5-10.9 55 T-3 Total 110.3 ng/dL 71.0-180.0 55 Reverse T3 517 pg/mL High 90-350 55 Lipid Profile 04/03/2011 Cholesterol 191 mg/dL 120-200 HDL 33 mg/dL 30-85 Triglycerides 132 mg/dL 30-200 HDL Risk Factor 5.8 CALC High 0.0-4.0 LDL (Calculated) 132 CALC High 0-129 VLDL (Calculated) 26 mg/dL 0-50 2HR GTT (a) 04/03/2011 Glucose, Serum (Fma/CMC/CTX) 72 mg/dL 70-105 Glucose 1/2 hr 104 Glucose 1 Hour 112 Glucose 2HR 101 Laboratory test finding 04/03/2011 Insulin 13.9 uIU/mL 0.0-24.9 Laboratory test finding 03/27/2011 Throat - Beta Strep Fma NEG @ 48 HRS Quickstrep NEGATIVE Negative Laboratory test finding 02/06/2011 TSH 1.77 mIU/L 0.50-6.00 Free T4 0.91 ng/dL 0.75-1.54 CBC Electronic (a) 02/06/2011 WBC 9.1 3.6-9.6 RBC 4.88 3.90-5.70 Hemoglobin (Fma/CMC/CTX) 13.9 g/dL 12.1 - 17.2 Hematocrit (Fma/CMC/CTX) 40.8 % 36.1 - 50.3 Platelets 293 10^3/ul 150-400 Lymph% 32.0 20.5-51.1 Mixed% 5.8 Neutrophils % 62.2 Mean Corpuscular Vol 84 82.2-97.4 Mean Corpuscular Hemoglobin 28.4 27.6-33.3 Mean Corpuscular Hemo Concen 34.0 32.0-36.0 RDW 12.5 11.6-13.7 Mean Platelet Volume 9.0 6.5-11.0 Laboratory test finding 02/06/2011 Prolactin 6.9 ng/ml 57, 58 Allergy Food Basic 01/18/2011 [id number] Egg White 0.09 kU/L Class I Q693-RhE Milk (Cow) 0.11 kU/L Class I J037-CdM Codfish 0.06 kU/L Class 0/I C163-SnY Wheat 0.09 kU/L Class I Z760-QnB Peanut 0.07 kU/L Class 0/I C177-OfX Soybean <0.05 kU/L Class 0 Allergy Zone 1 01/18/2011 Class Description SEE NOTE 59 R751-RaV D pteronyssinus 0.09 kU/L Class I W125-GqD D farinae Mite 0.07 kU/L Class 0/I N592-PhW Cat Hair/Dander,Obed 0.24 kU/L Class II H591-KfN Dog Epithelia 0.11 kU/L Class I U662-MlP B[place] Grass 0.06 kU/L Class 0/I N245-XfJ Blue[place], [place] <0.05 kU/L Class 0 U033-AkA [place] Grass <0.05 kU/L Class 0 E443-EmJ Cockroach,Panamanian <0.05 kU/L Class 0 J674-AmH Penicillium notatum 0.07 kU/L Class 0/I H307-GxT Cladosporium herbaru 0.07 kU/L Class 0/I A627-IkD Aspergillus fumigatu 0.06 kU/L Class 0/I M933-LoJ Mucor racemosus 0.08 kU/L Class I Y961-KoI Alternaria tenuis <0.05 kU/L Class 0 K207-HxQ Stemphylium botryosu 0.05 kU/L Class 0/I V848-UhA Birch, White <0.05 kU/L Class 0 T054-VoL [place], White 0.07 kU/L Class 0/I X971-DqL Elm, Panamanian (White <0.05 kU/L Class 0 Y729-AhJ Aiden, White <0.05 kU/L Class 0 D208-UkB Maple/[place] <0.05 kU/L Class 0 Z284-LkJ Hazelnut Tree <0.05 kU/L Class 0 O515-WnT [place], White <0.05 kU/L Class 0 Q198-PgF White [place] <0.05 kU/L Class 0 B884-JbW [place], Mountain <0.05 kU/L Class 0 X951-RbY Ragweed, Short/Commo <0.05 kU/L Class 0 C593-YuH Mugwort <0.05 kU/L Class 0 P014-OxN Plantain, Dominican <0.05 kU/L Class 0 Y594-UsL Pigweed, Rough <0.05 kU/L Class 0 I401-DdL Sheep [place](Dock) <0.05 kU/L Class 0 L669-PcC Nettle 0.09 kU/L Class I CBC Electronic ([facility]) 11/23/2010 WBC 6.5 3.6-9.6 RBC 4.93 3.90-5.70 Hemoglobin (Fma/CMC/CTX) 13.3 g/dL 12.1 - 17.2 Hematocrit (a/CMC/CTX) 41.6 % 36.1 - 50.3 Platelets 260 10^3/ul 150-400 Lymph% 36.6 20.5-51.1 Mixed% 6.5 Neutrophils % 56.9 Mean Corpuscular Vol 84 82.2-97.4 Mean Corpuscular Hemoglobin 27.1 Low 27.6-33.3 Mean Corpuscular Hemo Concen 32.1 32.0-36.0 RDW 12.8 11.6-13.7 Mean Platelet Volume 8.7 6.5-11.0 Ua - Micro (a) 11/23/2010 Appearance CLOUDY Color YELLOW Glucose NEG Bilirubin NEG Ketones NEG SP Grav 1.015 Blood SMALL PH 7.0 Protein NEG Urobil 0.2 Nitrite NEG Leukocytes (a/CMC/Centrex) SMALL Hyaline - /Lpf Granular - /Lpf WBC ([facility],Centrex) 6-8 RBC 4-6 Mucus - /Lpf Epith MOD /Lpf Bacteria 2+ /Hpf Amorphous - /Lpf Crystals, Fluid (a/CMC/CTX) - Z#Comments NOT CLEAN CATCH Comprehensive Metabolic Prof 11/23/2010 Albumin 4.9 g/dL 3.8-5.5 Alk. Phos. 86 U/L 30-110 Alt (SGPT) 14 U/L 7-35 Ast (Sgot) 16 U/L 5-34 BUN 11 mg/dL 6-26 Calcium 10.2 mg/dL 8.6-10.2 Chloride 103 mEq/L 94-112 Creatinine 0.6 mg/dL 0.6-1.4 Carbon Dioxide 22 mEq/L 21-32 Glucose 96 mg/dL 70-105 Sodium 139 mEq/L 134-149 Total Bilirubin 0.5 mg/dL 0.2-1.3 Total Protein 7.8 g/dL 6.3-8.1 Potassium 3.9 mEq/L 3.6-5.5 Globulin 2.9 g/dL 2.0-4.8 A/G Ratio 1.7 Calc 0.6-2.2 BUN/Creat Ratio 19.0 Calc 8.0-36.0 Laboratory test finding 11/23/2010 TSH 1.43 mIU/L 0.50-6.00 Free T3 2.76 pg/mL 2.00-4.90 Free T4 0.88 ng/dL 0.75-1.54 Laboratory test finding 11/23/2010 Vitamin D, 25 Oh 13.2 ng/mL Low 32.0- 100.0 60 Iron/Tibc,%Sat Group 07/20/2010 Iron 33 g/dL 30-158 61 Total Iron Binding Cap. 336 g/dL 250-450 61 % Iron Saturation 9.8 % Low 13.0-45.0 61 CBC (a) 07/20/2010 WBC 7.4 3.6-9.6 RBC 4.45 3.90-5.70 Hemoglobin (Fma/CMC/CTX) 12.8 g/dL 12.1 - 17.2 Hematocrit (Fma/CMC/CTX) 39.0 % 36.1 - 50.3 Platelets 278 10^3/ul 150-400 Lymph% 41.3 20.5-51.1 Mixed% 9.9 Neutrophils % 48.8 Mean Corpuscular Vol 87.6 82.2-97.4 Mean Corpuscular Hemoglobin 28.8 27.6-33.3 Mean Corpuscular Hemo Concen 32.8 32.0-36.0 RDW 13.1 11.6-13.7 Mean Platelet Volume 12.5 High 6.5-11.0 Laboratory test 05/06/2010 [facility] [place] [facility] Test CBC;UA;TYPE&SCN See Image Report finding 1 2 ssts 2 HLA-B*27 Negative B27 allele interpretation for all loci based on IMGT/HLA database version 3.27 This test was developed and its performance characteristics determined by [facility]. It has not been cleared or approved by the Food and Drug Administration. [facility] CLIA ID Number [id number] This test was performed using PCR (Polymerase Chain Reaction)/SSOP (Sequence Specific Oligonucleotide Probes) technique. SBT (Sequence Based Typing) and/or SSP (Sequence Specific Primers) may be used as supplemental methods when necessary. Please contact [facility] Customer Service at if you have any questions. Director of [facility] Dr Darrel Lynn, PhD 3 Negative <1:80 Borderline 1:80 Positive >1:80 4 Negative <20 Weak positive 20 - 39 Moderate positive 40 - 59 Strong positive >59 5 1 sst 6 Positive: 5 of the following Borrelia-specific bands: 18,23,28,30,39,41,45,58, 66, and 93. Negative: No bands or banding patterns which do not meet positive criteria. 7 Note: An equivocal or positive EIA result followed by a negative Western Blot result is considered NEGATIVE. An equivocal or positive EIA result followed by a positive Western Blot is considered POSITIVE by the CDC. Positive: 2 of the following bands: 23,39 or 41 Negative: No bands or banding patterns which do not meet positive criteria. Criteria for positivity are those recommended by CDC/ASTPHLD. p23=Osp C, [id number] Note: Sera from individuals with the following may cross react in the Lyme Western Blot assays: other spirochetal diseases (periodontal disease, leptospirosis, relapsing fever, yaws, and pinta); connective autoimmune (Rheumatoid Arthritis and Systemic Lupus Erythematosus and also individuals with Antinuclear Antibody); other infections (Buda Spotted Fever; Doris-Hinojosa Virus, and Cytomegalovirus). 8 3sst 9 Age 1 - 5 years 0 - 67 6 - 7 years 0 - 110 8 - 10 years 0 - 185 11 - 12 years 0 - 201 13 - 14 years 0 - 318 15 - 16 years 39 - 481 17 - 19 years 40 - 491 >19 years 31 - 701 This test was developed and its performance characteristics determined by [facility]. It has not been cleared or approved by the Food and Drug Administration. 10 Prepubertal <40 Female Cycle: 1-10 Days 61 - 394 11-20 Days 122 - 437 21-30 Days 156 - 350 Post-Menopausal <40 [facility] Treatment for Ovulation Induction: 400 - 800 11 Follicular phase 0.1 - 0.9 Luteal phase 1.8 - 23.9 Ovulation phase 0.1 - 12.0 First trimester 11.0 - 44.3 Second trimester 25.4 - 83.3 Third trimester 58.7 - 214.0 Postmenopausal 0.0 - 0.1 12 Thyroglobulin Antibody measured by [facility] Methodology 13 2 ssts 14 Follicular phase 2.4 - 12.6 Ovulation phase 14.0 - 95.6 Luteal phase 1.0 - 11.4 Postmenopausal 7.7 - 58.5 15 Follicular phase 3.5 - 12.5 Ovulation phase 4.7 - 21.5 Luteal phase 1.7 - 7.7 Postmenopausal 25.8 - 134.8 16 Prepubertal <40 Female Cycle: 1-10 Days 61 - 394 11-20 Days 122 - 437 21-30 Days 156 - 350 Post-Menopausal <40 HMG Treatment for Ovulation Induction: 400 - 800 17 SEE RESULT BELOW Name: NELI SUERO : [address]: Hamzah Read MD Acct: [id number] Unit: [id number] AGE: 35 Location: [facility] Re11/24/15 SEX: F Status: REG REF SPEC: [id number] SARAH: 11/24/15-[address] [facility] [address]: Hamzah Read MD REQ: [id number] RECD: 11/24/15 STATUS: MATTIE LOCK DR: Sami Conn MD _ SOURCE: GAS ANTRUM SPDES: ORDERED: Clotest Procedure Result Reported Site Clotest Final 11/25/15- 824 ML Clotest Negative * ML - MAIN LAB ([facility]) . END OF REPORT * ML=Testing performed at Main Lab DEPARTMENT OF PATHOLOGY, [address] [place] [address] Oscar Hodgson M.D. Director [facility] # [id number] 18 [id number] SEE RESULT BELOW Name: NELI SUERO : [address]: Hamzah Read MD Acct: [id number] Unit: [id number] AGE: 35 Location: [facility] Re11/24/15 SEX: F Status: REG REF SPEC: [id number] SARAH: 11/24/15-1435 [facility] [address]: Hamzah Read MD REQ: [id number] RECD: 11/24/15-1540 STATUS: MICHAEL LOCK DR: Sami Conn MD _ ORDERED: LEVEL IV/3 COMMENTS: [id number] FINAL DIAGNOSIS 1. Duodenum, third portion, biopsy: -- Benign small intestinal mucosa with no significant pathologic abnormalities. -- No evidence of villous blunting or increased intraepithelial lymphocytes. 2. Duodenum, thickened folds, biopsy: -- Benign small intestinal mucosa with no significant pathologic abnormalities. -- No evidence of villous blunting or increased intraepithelial lymphocytes. 3. Esophagus, at 25 cm, biopsy: -- Benign squamous mucosa with mild erosive changes. -- No columnar component present for evaluation. CLINICAL HISTORY Chest pain with swallowing - diaphoretic can't breathe even small bites. POST-OPERATIVE DIAGNOSIS Esophagus - normal, 17 through 35 - biopsied x2 at 25, loose hiatus, stomach - antral gastritis, duodenum - normal - biopsied x2, 2 sites. Conclusions/Plan: Mild gastritis, duodenal fold, hiatal hernia, dysphagia, LIT=gastroesophageal reflux disease. GROSS DESCRIPTION 1. The specimen is received in formalin labeled, Third Portion Duodenum Biopsies, and consists of a 0.7 x 0.5 x 0.2 cm aggregate of crabtree irregular soft tissue fragments, which is submitted entirely in one cassette. 2. The specimen is received in formalin labeled, Duodenum Thickened Fold Biopsies, and consists of two crabtree irregular soft tissue fragments averaging 0.4 x 0.2 x 0.2 cm, which are submitted entirely in one cassette. CONTINUED ON NEXT PAGE * ML=Testing performed at Main Lab DEPARTMENT OF PATHOLOGY, [address] [place] [address] Oscar Hodgson M.D. Director [facility] # [id number] RUN DATE: 11/28/15 [facility] LAB LIVE PAGE 2 Patient: SUERONELI [id number] (Continued) GROSS DESCRIPTION (Continued) GROSS DESCRIPTION (Continued) 3. The specimen is received in formalin labeled, Esophagus Biopsies at 25 cm, and consists of an consists of a 0.5 x 0.4 x 0.2 cm aggregate of rodriguez white irregular soft tissue fragments, which is submitted entirely in one cassette. Signed (signature on file) Amaya Booker MD 1047 END OF REPORT * ML=Testing performed at Main Lab DEPARTMENT OF PATHOLOGY, [facility] [place], [place] [address] Oscar Hodgson M.D. Director [facility] # [id number] 20 RESULTS VERIFIED BY REPEAT ANALYSIS 21 2 FROZEN POURED OFF CITRAT ED PLASMA FROM LIGHT BLUE TUBE 22 Reference interval is for non-anticoagulated patients. Suggested INR therapeutic range for Vitamin K antagonist therapy: Standard Dose (moderate intensity therapeutic range): 2.0 - 3.0 Higher intensity therapeutic range 2.5 - 3.5 23 This test has not been validated for monitoring unfractionated heparin therapy. aPTT-based therapeutic ranges for unfractionated heparin therapy have not been established. For general guidelines on Heparin monitoring, refer to the [facility] Directory of Services. 24 SRC:URINE 1 ELKINS TOP URINE TUBE 25 Source of Specimen: URINE 1 ELKINS TOP URINE 26 Klebsiella pneumoniae Source of Specimen: URINE 1 ELKINS TOP URINE 25,000-50,000 colony forming units per mL 27 Source of Specimen: URINE 1 ELKINS TOP URINE S=Susceptible; I=Intermediate; R=Resistant P=Positive; N=Negative MICS are expressed in micrograms per mL Antibiotic RSLT#1 RSLT#2 RSLT#3 RSLT#4 Amoxicillin/Clavulanic Acid S Ampicillin R Cefepime S Ceftriaxone S Cefuroxime S Cephalothin S Ciprofloxacin S Ertapenem S Gentamicin S Imipenem S Levofloxacin S Nitrofurantoin R Piperacillin I Tetracycline S Tobramycin S Trimethoprim/Sulfa S 28 The high-risk HPV types detected by the assay include: 16, 18, 31, 33, 35, 39, 45, 51, 52, 56, 58, 59, 66, and 68. 29 RUN DATE: 12/09/14 [facility] LAB LIVE PAGE 1 RUN TIME: [id number] [place], [place] [address] Specimen Inquiry Name: NELI SUERO : [address]: Megan Chow [employer] Acct: [id number] Unit: [id number] AGE: 34 Location: [facility] Re12/08/14 SEX: F Status: REG REF SPEC: [id number] SARAH: 12/08/[address] [facility] [address]: Megan Chow [employer] REQ: [id number] RECD: 12/08/14 STATUS: MICHAEL LOCK DR: Sami Conn MD _ ORDERED: IMAGE ANALYSIS, HPV/Thin Prep, HPV 16/18 GENE FINAL DIAGNOSIS Negative for Intraepithelial lesion or Malignancy A. Ectocervical/Endocervical Specimen Adequacy: Satisfactory of evaluation Transformation zone component identified Patient Information: HPV: Thin Layer Pap Test w/reflex to high risk HPV RNA testing when ASCUS Actual Specimen Date: 12/08/14 Last Menstrual Date: 11/14/14 ?: N Post Menopausal?: N Hysterectomy?: N Previous Abnormal Pap Smears?:N Other Pertinent History: S/P Tubal Ligation. Date Time Test Result Flag (u) Normal Range 12/08/14 0930 HPV RNA Negative Negative The high-risk HPV types detected by the assay include: 16, 18, 31, 33, 35, 39, 45, 51, 52, 56, 58, 59, 66, and 68. Signed (signature on file) DRE Regalado ([facility] [place]) 12/09 7301 This Pap test was evaluated with the assistance of the ArthenaPrep Test Imaging System. Due to cytologic findings at the field party manager microscope, comprehensive manual rescreening by a Senior Counsel Commercial may be required. The Pap Smear is a screening test designed to aid in the detection of premalignant and malignant conditions of the uterine cervix. It is not a diagnostic procedure and should not be used as the sole means of detecting cervical cancer. Both false- positive and false- negative reports do occur. Depending on your risk status, a Pap smear should be obtained and evaluated every 1-3 years. END OF REPORT * ML=Testing performed at Main Lab DEPARTMENT OF PATHOLOGY, [address] [place] [address] Oscar Hodgson M.D. Director [facility] # [id number] 30 FASTING 31 RESULTS VERIFIED BY REPEAT ANALYSIS 32 RESULT ALCIDES'D 33 split specimen code 09119 17 hydro pregnenolone 1 pour off sst Frozen; 3 sst's 34 . Normally Menstruating Females: Follicular Phase: 18.9-246.7 Mid-Cycle Peak : 35.5-570.8 Luteal Phase : 22.4-256.0 Postmenopausal........: <7.0-44.5 Males.................: 11.6-41.2 . 35 . Normally Menstruating Females: Follicular Phase: 2.5-10.2 Mid-Cycle Peak : 3.4-33.4 Luteal Phase : 1.5-9.1 ..............: <0.3 Postmenopausal........: 23.0-116.3 Males.................: 1.4-18.1 . 36 . Normally Menstruating Females: Follicular Phase: 1.9-2.5 Mid-Cycle Peak : 8.7-76.3 Luteal Phase : 0.5-16.9 ..............: <0.1-1.5 Postmenopausal........: 15.9-54.0 Contraceptives........: 0.7-5.6 Males (age 20-70 yrs).: 1.5-9.3 Males (age >70 yrs)...: 3.1-34.0 Children..............: 0.1-6.0 . 37 Reference Range: Adults: 53 - 357 38 1SST 39 Escherichia coli >100,000 col/ml URINE CULTURE organism 1 Escherichia coli >100,000 col/ml Meropenem <=0.25 Susceptible Ertapenem <=0.5 Susceptible Amikacin <=2 Susceptible Amoxicillin/CA 8 Susceptible Ampicillin >=32 Resistant Aztreonam <=1 Susceptible Cefazolin <=4 Susceptible Ciprofloxacin <=0.25 Susceptible Gentamicin <=1 Susceptible Imipenem <=1 Susceptible Levofloxacin 0.5 Susceptible Nitrofurantoin <=16 Susceptible Tetracycline >=16 Resistant Trimethoprim/Sulfa >=320 Resistant 40 result alcides'd 41 RARE WBC, MOD. GRAM POS COCCI 42 Enterococcus faecalis - (Group D) Predominating WOUND CULTURE organism 1 Enterococcus faecalis - (Group D) Predominating Gentamicin 500 SYN-S Susceptible Penicillin-G 4 Susceptible Streptomycin 2000 SYN-R Resistant Vancomycin 1 Susceptible 43 If is still suspected, please repeat test after 48 to 72 hours. . This test detects intact HCG only and is indicated for the early detection of . 44 Anion gap measurement may be of limited value in the presence of any alkalosis, especially in a combined acid base disorder. . 45 Because ethnic data is not always readily available, this report includes an eGFR for both -Americans and non- Americans. The National Kidney Disease Education Program (NKDEP) does not endorse the use of the MDRD equation for patients that are not between the ages of 18 and 70, are , have extremes of body size, muscle mass, or nutritional status, or are non- or non-. According to the National Kidney Foundation, irrespective of diagnosis, the stage of the disease is based on the level of kidney function: Stage Description GFR(mL/min/1.73 m(2)) 1 Kidney damage with normal or decreased GFR 90 2 Kidney damage with mild decrease in GFR 60-89 3 Moderate decrease in GFR 30-59 4 Severe decrease in GFR 15-29 5 Kidney failure <15 (or dialysis) 46 NORMAL RANGE MALES 1 - 20 NORMALLY MENSTRUATING FEMALES - Follicular Phase 3 - 9 - Mid-Cycle Peak 4 - 23 - Luteal Phase 1 - 6 POSTMENOPAUSAL FEMALES 16 - 114 . 47 NORMAL RANGE MALES 2 - 12 NORMALLY MENSTRUATING FEMALES - Follicular Phase 1 - 18 - Mid-Cycle Peak 24 - 105 - Luteal Phase 0.6 - 20 POSTMENOPAUSAL FEMALES 15 - 62 . 48 REFERENCE RANGE: AM 8.7-22.4 PM LESS THAN 10 . 49 EXPECTED RESULTS (pg/ml) MALES 20-75 POSTMENOPAUSAL FEMALES 20-88 NON FEMALES Mid-Follicular Phase 24-114 Periovulatory 62-534 Mid Luteal Phase 80-273 50 FEMALE REFERENCE RANGES FOR Progesterone: Follicular phase.......0.3 - 1.5 ng/ml Mid-luteal phase.......5.2 - 18.5 ng/ml Postmenopausal.........< 0.8 ng/ml 1st trimester.........4.7 - 50.0 ng/ml 2nd trimester.........19.4 - 45.3 ng/ml . 51 -- REFERENCE VALUE -- < 80 (Follicular) <285 (Luteal) Test Performed by: [facility] Dpt of Lab Med and Pathology [address] [place] [address] Caddie Supervisor: Chava Duke III, M.D. 52 Test Performed by: [facility] Dpt of Lab Med and Pathology [address] [place] [address] Caddie Supervisor: Chava Duke III, M.D. 53 Test Performed by: [facility] Dpt of Lab Med and Pathology [address] [place] [address] Caddie Supervisor: Chava Duke III, M.D. 54 Test Performed by: [facility] Dpt of Lab Med and Pathology [address] [place] [address] Caddie Supervisor: Chava Duke III, M.D. 55 3 ssts 56 Siemens (DPC) ICMA Methodology 57 1 SST 58 . FEMALES: Non : 2.8-29.2 : 9.7-208.5 Postmenopausal : 1.8-20.3 MALES:................: 2.1-17.7 . 59 Levels of Specific IgE Class Description of Class ----- <0.05 0 Negative 0.05 - 0.07 0/I Equivocal 0.08 - 0.15 I Increasing 0.16 - 0.50 II levels 0.51 - 2.50 III of 2.51 - 12.50 IV Specific IgE 12.51 - 62.50 V Antibody 62.51 - >100.00 60 Recent studies consider the lower limit of 32.0 ng/mL to be a threshold for optimal health. Reymundo ZENDEJAS. J Nutr. 2004;135(2):317-22. 61 1SST Procedures Date CPT Code Description Status 11/13/2017 Mammogram Completed 01/18/2016 82028 Destruction Of Flat Warts Or Molluscum Contagiosum, Completed Milia To 15 07/07/2013 19086 Pure Tone Hearing Test, Air Completed 04/06/2013 73557 Vision Test- screening test of visual acuity, Completed quantitative, bila 01/09/2012 59848 Finger Or Heel Stick Completed Encounters Type Date Location Provider CPT E/M Dx Office Visit 03/02/2018 11:00a Main Office Sami Conn, 17584 E66.3 M.DPetar Office Visit 11/11/2017 10:10a [facility] Office Sami Conn 06333 M25.541 M.DPetar M25.542 M25.511 M25.512 M79.672 M79.671 Office Visit 06/30/2017 9:40a Main Office Sami Conn M.D. 09210 E66.3 E28.2 R53.83 Office Visit 06/06/2017 9:10a Main Office Sami Conn M.D. 91091 E66.3 E28.2 F41.9 F32.9 Office Visit 02/05/2017 10:10a Main Office Sami Conn M.D. 31574 E66.3 Office Visit 10/23/2016 11:10a Main Office Sami Conn M.D. 17712 E66.3 Office Visit 06/12/2016 2:00p Main Office Sami Conn M.D. 90284 M25.511 Office Visit 04/24/2016 9:40a Main Office Sami Conn M.D. 80037 L70.0 E66.3 Office Visit 03/28/2016 11:15a [place] [address] R21 L70.0 Office Visit 02/22/2016 2:30p [place] [address] E66.3 L70.0 E28.2 Office Visit 01/18/2016 10:00a [place] [address] E66.3 L70.0 B07.9 Office Visit 10/30/2015 3:40p Main Office Sami Conn M.D. 37488 E66.3 R53.83 R21 Office Visit 09/01/2015 9:30a [facility] Office Sami Conn M.D. 55483 Z11.1 Office Visit 08/28/2015 8:40a Main Office Sami Conn M.D. 46242 E66.3 Office Visit 11/08/2014 7:45p Main Office Patricia Tang 84958 719.41 Office Visit 10/21/2014 3:30p Main Office Sami Conn M.D. 16608 V74.1 Office Visit 09/09/2014 4:30p [place] [address] 782.9 Office Visit 08/24/2014 2:20p Main Office Sami Conn M.D. 73871 278.02 Office Visit 03/29/2014 8:15p Main Office Amayabenjamin Sanchez [facility] 40944 786.59 300.00 311 784.0 Office Visit 03/03/2014 10:45a Main Office Landanp-C 84110 789.09 256.4 686.9 Office Visit 02/09/2014 10:20a Main Office Sami Conn M.D. 83672 V70.0 Office Visit 01/07/2014 4:30p Main Office Sami Conn M.D. 66510 V74.1 Office Visit 11/26/2013 4:10p Main Office Sami Conn M.D. 56792 278.02 719.45 Office Visit 11/11/2013 7:30p Main Office Amaya Delatorrecharlotte [facility] 66281 782.0 Office Visit 11/05/2013 4:20p Main Office Sami Conn M.D. 21735 724.5 719.45 Office Visit 10/12/2013 6:15p Main Office Graciela Calderón [facility]- 97657 782.1 Office Visit 08/09/2013 3:40p Main Office Sami Conn M.D. 58564 278.02 Office Visit 07/07/2013 5:10p Main Office Sami Conn M.D. 42105 799.51 V41.2 Office Visit 06/30/2013 3:10p Main Office Sami Conn M.D. 12459 462 Office Visit 06/10/2013 3:00p Main Office Graciela Calderón [facility]- 61244 079.99 Office Visit 05/28/2013 4:10p Main Office Sami Conn M.D. 49365 278.02 799.51 Office Visit 04/06/2013 7:00p Main Office Amaya Sanchez [facility] 09105 278.02 256.4 V70.5 V72.0 Office Visit 04/01/2013 1:15p Main Office Sami Conn M.D. 27333 V74.1 Office Visit 03/22/2013 2:50p Main Office Tiburcio Velasquez M.D. 97410 728.71 Office Visit 12/24/2012 11:10a Main Office Sami Conn M.D. 47027 278.02 Office Visit 12/01/2012 7:45p Main Office Elgin Tang-C 69626 995.3 Office Visit 11/25/2012 8:20p Main Office Sami Conn M.D. 04565 278.02 Office Visit 10/23/2012 11:10a Main Office Sami Conn M.D. 47429 278.02 Office Visit 10/22/2012 7:30p Main Office Amaya Delatorrebhart [facility] 73362 382.4 Office Visit 09/16/2012 8:20p Main Office Sami Conn M.D. 12081 278.02 Office Visit 08/28/2012 3:15p Main Office Grace Dhillon [facility] 28437 461.9 Office Visit 08/18/2012 11:00a [facility] Office Sami Conn M.D. 14320 729.1 Office Visit 08/05/2012 8:20p Main Office Sami Conn M.D. 17720 278.02 Office Visit 07/10/2012 4:20p Main Office Sami Conn M.D. 61657 465.9 Office Visit 06/30/2012 3:00p [facility] Office Sami Conn M.D. 74868 278.02 311 Office Visit 06/04/2012 7:00p Main Office Sami Conn M.D. 40328 V74.1 Office Visit 05/27/2012 8:20p Main Office Sami Conn M.D. 88532 278.02 Office Visit 04/22/2012 8:20p Main Office Sami Conn M.D. 08458 787.20 278.02 Office Visit 04/20/2012 8:30p Main Office PAUL Tomlin 34107 461.9 Office Visit 03/25/2012 8:20p Main Office Sami Conn M.D. 95666 278.02 Office Visit 02/21/2012 11:10a Main Office Sami Conn M.D. 24953 278.02 Office Visit 01/08/2012 8:20p Main Office Sami Conn M.D. 92818 787.20 783.5 Office Visit 12/18/2011 8:20p Main Office Sami Conn M.D. 98530 278.02 Office Visit 11/20/2011 3:10p Main Office Sami Conn M.D. 67512 278.02 Office Visit 10/28/2011 8:10p Main Office Hanh Baker M.D. 94819 682.8 Office Visit 09/16/2011 8:30p Main Office Hanh Baker M.D. 97122 924.9 Office Visit 09/03/2011 10:00a Main Office Hanh Baker M.D. 82731 244.9 626.8 Office Visit 06/25/2011 11:10a [facility] Office Sami Conn M.D. 41730 784.0 Office Visit 05/13/2011 1:30p Main Office PAUL Tomlin 93433 848.8 Office Visit 04/26/2011 2:00p [facility] Office Hanh Baker M.D. 00528 278.02 995.3 626.8 256.4 Office Visit 04/01/2011 1:10p Main Office Sami Conn M.D. 13820 372.00 Office Visit 03/30/2011 11:00a Main Office Amaya lisa Villafana 99504 463 MPetarDPetar Office Visit 03/27/2011 1:10p Main Office Sami Conn M.D. 25220 462 Office Visit 01/24/2011 4:30p Main Office Hanh Baker M.D. 11758 V74.1 Office Visit 11/23/2010 10:00a [facility] Office Hanh Baker M.D. 63642 V70.0 719.46 719.45 268.9 791.7 Office Visit 07/20/2010 3:30p Main Office PAUL Tomlin 23026 786.2 Office Visit 01/20/2010 10:45a Main Office Patricia Stephenson 27451 V22.2 V13.8 Plan of Care 07/30/2018 - Amaya Sanchez, FNPJ01.90 Acute sinusitis, unspecifiedComments: the antibiotics not working is probably because it's a virustry the switch to augmentin, but it should probably be re-eval'd by [id number] Dental caries, unspecifiedAllNew Medication:Augmentin 875-125 mgNo Active MedicationsComments:~ B_~U_Medication Management~b_~u_ Patient Understands medications he 's taking? Yes No Are there Barriers to Adherence? Yes No Has the patient been asked about herbal supplements and therapies, and OTC meds? Yes No As always, we strongly encourage a healthy diet and makingphysical activity a part of your every day life. If you have questions about how or where to start, please contact the office.
--- NOTE | 2018-08-09 14:01 | UC ---
Lower Extremity/Ankle HPI - HPI Summary HPI Summary: Patient is 37 year old female , who present today to the urgent care with right foot pain for past 3 days. She reports that she was trying to change the light bulb was standing on the stool and while getting down she slipped and landed at the edge of the step and now has pain in her foot. Pain is reported mainly at the dorsum of the foot and the second and the third metatarsal area. She is able to be her weight without any difficulty. Reports pain relief with naproxen. Denies any ankle pain at this time - History of Current Complaint Stated Complaint: SP FALL-RT FOOT INJURY Time Seen by Provider: 08/09/18 13:57 Hx Obtained From: Patient Hx Last Menstrual Period: 3 weeks ago - Allergies/Home Medications Allergies/Adverse Reactions: Allergies Allergy/AdvReac Type Severity Reaction Status Date / Time ciprofloxacin [From Cipro] Allergy Joint Pain Verified 08/09/18 14:04 oxycodone Allergy Hives Verified 08/09/18 14:04 Sulfa (Sulfonamide AdvReac "Severe Verified 08/09/18 14:04 Antibiotics) yeast infection" Home Medications: Home Medications Amoxicillin/Clavulanate TAB* [Augmentin TAB 875*] 875 mg PO BID 08/09/18 [ History Confirmed 08/09/18] Naproxen Sodium [Aleve] 660 mg PO ONCE 08/09/18 [History Confirmed 08/09/18] Thiamine TAB* [Vitamin B-1 TAB*] 100 mg PO EVERY OTHER DAY 08/09/18 [History Confirmed 08/09/18] buPROPion TAB* [Wellbutrin TAB*] 100 mg PO BID 08/09/18 [History Confirmed 08/09] PMH/Surg Hx/FS Hx/Imm Hx - Additional Past Medical History Additional PMH: Depression Thiamine deficiency Previously Healthy: Yes - Surgical History Surgical History: Yes Surgery Procedure, Year, and Place: Tubal Ligation, BREAST REDUCTION, D&C X2 - Social History Alcohol Use: None Substance Use Type: None Smoking Status (MU): Never Smoked Tobacco Review of Systems All Other Systems Reviewed And Are Negative: Yes Constitutional: Positive: Negative Skin: Positive: Negative Eyes: Positive: Negative ENT: Positive: Negative Respiratory: Positive: Negative Cardiovascular: Positive: Negative Gastrointestinal: Positive: Negative Genitourinary: Positive: Negative Motor: Positive: Negative Neurovascular: Positive: Negative Musculoskeletal: Positive: Arthralgia - Right foot, Edema - Right foot Neurological: Positive: Negative Psychological: Positive: Negative Is Patient Immunocompromised?: No Physical Exam - Summary Physical Exam Summary: Physical Exam: Const: Appears well. No signs of apparent distress present. Alert and oriented x 3. Head/Face: Atraumatic, normocephalic on inspection. Eyes: EOMI and PERRLA in both eyes. Conjunctivae clear. ENT: Hearing normal, TM normal appearing bilaterally . Respiratory: Respirations are unlabored. CVS: Regular rate and Rhythm, S1S2 normal , no murmurs identified. Extremities: Peripheral circulation is grossly normal. Pulses 2+ Abdomen : Soft non tender , nondistended , Bowel sounds present . Skin: No lesions or rash located on the upper extremities or on the lower extremities. Neuro: Cranial nerves II to XII intact, motor and sensory intact. DTR Intact bilaterally. Mood is normal. Affect is normal. Right Ankle/Feet examination: Ankle: Gait: Normal weight bearing, Inspection/palpation: No bruising, swelling or tenderness noted Ankle mortise appears intact. ROM: full AROM: Full dorsiflexion(20 deg), Full plantar flexion(50 deg) Strength: 5/5 with dorsiflexion, plantarflexion, inversion and eversion Special tests:Anterior drawer test is negative . Side to side test negative.Talar tilt test(inversion stress) and the eversion stress test negative. Negative Squeeze and External Rotation tests. Heel tap test negative. Feet: Insp/Palp: Feet normal to inspection, no significant swelling or bruising is noted. There is tenderness to palpation at the second and the third metatarsal Strength: 5/5 Skin: No scars, rashes, lesions or ecchymosis. 2+ posterior tibial and dorsalis pedis pulse bilaterally. Neuro: Sensation to light touch is intact in the lower extremities bilaterally. Coordination normal. Triage Information Reviewed: Yes Vital Signs Reviewed: Yes Diagnostics - Radiology No standard instances Radiology Interpretation Completed By: ED Physician - Xray Rt foot : negative for fracture, Radiologist - NO RADIOGRAPHICALLY APPARENT FRACTURE OR DISLOCATION OF THE RIGHT FOOT If the patient's symptoms persist, follow-up imaging is recommended. Lower Extremity Course/Dx - Course Course Of Treatment: During the visit today, we obtained x-ray of the right foot: Negative for fracture. Final report:NO RADIOGRAPHICALLY APPARENT FRACTURE OR DISLOCATION OF THE RIGHT FOOT. We discussed the findings and further plan. Patient expressed understanding . - Differential Dx/Diagnosis Provider Diagnosis: Contusion of right foot Discharge - Sign-Out/Discharge Documenting (check all that apply): Patient Departure All imaging exams completed and their final reports reviewed: Yes - Discharge Plan Condition: Stable Disposition: HOME Patient Education Materials: Foot Contusion (ED) Referrals: Sami Conn MD [Primary Care Provider] - Jemal Eason MD [Medical Doctor] - 1 Week Additional Instructions: Ibuprofen and ice as needed for pain control and swelling. Ice 15 minutes at a time 3-4 times a day. Activity as tolerated pain-free. Follow up with orthopedics within a week Return to urgent care/ER if symptoms get worse. - Billing Disposition and Condition Condition: STABLE Disposition: Home
[2018-08-09 14:09] VITALS: BP 124/82
== END 2018-08-09 15:14 | disposition home or self-care (01) ==
LOC: UCCORT 12:11
DX: S90.31XA Contusion of right foot, initial encounter (principal); W10.8XXA Fall (on) (from) other stairs and steps, initial encounter; Y93.89 Activity, other specified; Y92.9 Unspecified place or not applicable; Z88.1 Allergy status to other antibiotic agents; Z88.5 Allergy status to narcotic agent; Z88.2 Allergy status to sulfonamides; F32.9 Major depressive disorder, single episode, unspecified; E51.9 Thiamine deficiency, unspecified
CPT/HCPCS: 99211; G0463